=== PATIENT | female | born 1995 | race Caucasian/White ===

== ENCOUNTER 2019-10-02 06:34 | Emergency (ER) | payer OTHER ==
[~2019-10-02] VITALS: Ht 154.9 cm; Wt 47.6 kg
[2019-10-02 06:37] VITALS: Ht 154.9 cm; Wt 47.6 kg
[2019-10-02 07:43] VITALS: BP 111/71
== END 2019-10-02 07:43 | disposition home or self-care (01) ==
LOC: ED 06:34
DX: S60.312A Abrasion of left thumb, initial encounter (principal); W46.1XXA Contact with contaminated hypodermic needle, initial encounter; Y93.89 Activity, other specified; Y92.89 Other specified places as the place of occurrence of the external cause; Y99.8 Other external cause status